=== PATIENT | female | born 1970 | race Caucasian/White ===

== ENCOUNTER 2017-03-11 13:02 | Emergency (ER) | payer BC ==
[2017-03-11] MEDS ORDERED: ONDANSETRON 4 MG TAB.RAPDIS PO ONE (13:13)
[2017-03-11] MEDS ORDERED: LIDOCAINE 1% INJ-PF (10 MG/ML) 30 ML SDV INJ ONE (13:13)
[2017-03-11] MEDS ORDERED: OXYCODONE-ACETAMINOPHEN 5-325 MG TABLET PO ONE (13:13)
--- NOTE | 2017-03-11 13:13 | ER Document Report ---
ED Medical Screen (RME) - General Chief Complaint: Laceration Stated Complaint: LACERATION TO LEFT HAND/FINGERS Mode of Arrival: Wheelchair Information source: Patient Notes: 47-year-old female presents with multiple lacerations of left hand just prior to arrival I have greeted and performed a rapid initial assessment of this patient. A comprehensive ED assessment and evaluation of the patient, analysis of test results and completion of the medical decision making process will be conducted by additional ED providers. PHYSICAL EXAMINATION: GENERAL: Well-appearing, well-nourished and in no acute distress. HEAD: Atraumatic, normocephalic. EYES: Pupils equal round extraocular movements intact, conjunctiva are normal. ENT: Nares patent NECK: Normal range of motion LUNGS: No respiratory distress Musculoskeletal: Normal range of motion NEUROLOGICAL: Normal speech, normal gait. PSYCH: Normal mood, normal affect. SKIN: Multiple lacerations of the palmar surface of left hand TRAVEL OUTSIDE OF THE [place] IN LAST 30 DAYS: No - Related Data Allergies/Adverse Reactions: tramadol Allergy (Verified 09/12/16 11:14) Past Medical History Renal/ Medical History: Denies: Hx Peritoneal Dialysis Physical Exam - Vital signs Vitals: Temp Pulse Resp BP Pulse Ox 98.8 F 76 18 100/70 97 03/11/17 13:05 03/11/17 13:05 03/11/17 13:05 03/11/17 13:05 03/11/17 13:05 Course - Vital Signs Vital signs: Temp Pulse Resp BP Pulse Ox 98.8 F 76 18 100/70 97 03/11/17 13:05 03/11/17 13:05 03/11/17 13:05 03/11/17 13:05 03/11/17 13:05
[2017-03-11] MEDS ORDERED: PIPERACILLIN/TAZOBACTAM 3.375 GM VIAL IV ONE (14:06)
[2017-03-11] MEDS ORDERED: DIPH/PERTUSS(ACELL)/TETANUS VAC/PF 0.5 ML SYR (>=10YO) IM ONE (14:06)
[2017-03-11] MEDS ORDERED: MORPHINE SULFATE 10 MG/ML INJ IV ONE ×2 (14:19→16:13)
--- NOTE | 2017-03-11 17:10 | ER Document Report ---
ED Wound - General Chief Complaint: Laceration Stated Complaint: LACERATION TO LEFT HAND/FINGERS Time seen by provider: 14:00 Mode of Arrival: Wheelchair Information source: Patient Notes: This is a 47-year-old female presents to the emergency room after sustaining an injury to the left hand by a power edger. TRAVEL OUTSIDE OF THE [place] IN LAST 30 DAYS: No - HPI Patient complains to provider of: Laceration Occurred: Just prior to arrival Onset/Duration: Sudden Quality of pain: Sharp Severity: Moderate Pain Level: 4 Context: Injury Skin Temperature: Warm Skin Color: Normal Capillary refill: < 3 seconds Sensations intact: Yes Distal pulses present: Yes Associated Symptoms: None - Related Data Allergies/Adverse Reactions: tramadol Allergy (Verified 09/12/16 11:14) Past Medical History - General Information source: Patient - Social History Smoking Status: Never Smoker Cigarette use (# per day): No Chew tobacco use (# tins/day): No Frequency of alcohol use: None Drug Abuse: None Lives with: Family Family History: Reviewed & Not Pertinent Patient has suicidal ideation: No Patient has homicidal ideation: No - Medical History Medical History: Negative Renal/ Medical History: Denies: Hx Peritoneal Dialysis Surgical Hx: Negative Review of Systems - Review of Systems Constitutional: No symptoms reported EENT: No symptoms reported Cardiovascular: No symptoms reported Respiratory: No symptoms reported Gastrointestinal: No symptoms reported Genitourinary: No symptoms reported Female Genitourinary: No symptoms reported Musculoskeletal: See HPI Skin: See HPI Hematologic/Lymphatic: No symptoms reported Neurological/Psychological: No symptoms reported Physical Exam - Vital signs Vitals: Temp Pulse Resp BP Pulse Ox 98.8 F 76 18 100/70 97 03/11/17 13:05 03/11/17 13:05 03/11/17 13:05 03/11/17 13:05 03/11/17 13:05 Notes: Left hand: Good radial and ulnar pulse. Good cap refill. Good sensation. 2 point discrimination to each finger is good. Patient does have mild sensory loss to the radial aspect of the distal second digit beyond the laceration. She does have sensory, but it does not feel the same. Left index finger: Patient has a 3 cm laceration at the base of the finger just distal to the MCP joint. The wound was explored and placed into range of motion exercises and I do not see any injuries to the flexor tendon. FDP and FDS appear to be intact. Left middle finger: There is a 2 cm laceration to the radial aspect over the intermediate phalanx. Inspection of the wound with passive flexion and extension does not reveal any flexor tendon injuries. There is some sensory loss distally as mentioned above. Left fourth finger: There is 2 lacerations on the volar aspect of the intermediate phalanx. The first one is 1 cm, the second one is 2 cm. Flexor tendons are intact. Distal sensory is good. Left fifth finger: There is a 2 cm laceration over the distal phalanx. FDS and FDP are intact. Distal sensation is good. Course - Vital Signs Vital signs: Temp Pulse Resp BP Pulse Ox 98.5 F 71 16 100/74 100 03/11/17 17:38 03/11/17 17:38 03/11/17 17:38 03/11/17 17:38 03/11/17 17:38 Procedures - Laceration/Wound Repair Left 2nd digit Time completed: 16:00 Wound length (cm): 3 Wound's Depth, Shape: Into muscle, Irregular Anesthetic type: Other - Median nerve block performed Volume Anesthetic (mLs): 5 Wound explored: Clean Irrigated w/ Saline (mLs): 1,000 Wound Debrided: Minimal Wound Repaired With: Sutures Suture Size/Type: 5:0, Nylon Number of Sutures: 4 Post-procedure wound care: Sterile dressing applied Post-procedure NV exam normal: Yes Complications: No Notes: 03/12/17 01:12 Note: A median nerve block was performed and a superficial ulnar block performed under sterile conditions. The whole left hand was scrubbed with a surgical scrub brush with iodine 2. The lacerations were then copiously irrigated with sterile saline. I did need to supplement the nerve block with some digital blocks. The lacerations were inspected for tendon injury with passive range of motion of the digits. None were identified. The wounds were then approximated with nylon sutures. After this, the lacerations were covered with Xeroform and a bulky dressing. Left 3rd digit Time completed: 16:00 Wound length (cm): 2 Wound's Depth, Shape: Irregular Laceration pre-procedure: Chloraprep applied, Shur-Clens applied Anesthetic type: 1% Lidocaine Volume Anesthetic (mLs): 3 Wound explored: Clean Irrigated w/ Saline (mLs): 1,000 Wound Debrided: Minimal Wound Repaired With: Sutures Suture Size/Type: 5:0, Nylon Number of Sutures: 3 Layer Closure?: No Post-procedure NV exam normal: No - patient does have some mild sensory disturbance distally Complications: No Left 4th digit Time completed: 16:00 Wound length (cm): 5 - there is 2 lacerations to the fourth digit: one 3 cm, the other 2 cm Wound's Depth, Shape: Irregular Laceration pre-procedure: Chloraprep applied, Sterile drapes applied Anesthetic type: 1% Lidocaine Volume Anesthetic (mLs): 4 - digital block performed Wound explored: Clean Irrigated w/ Saline (mLs): 1,000 Wound Debrided: Minimal Wound Repaired With: Sutures Suture Size/Type: 5:0, Nylon Number of Sutures: 7 Post-procedure wound care: Sterile dressing applied Post-procedure NV exam normal: Yes Complications: No Left 5th digit Time completed: 16:00 Wound length (cm): 2 Wound's Depth, Shape: Irregular Laceration pre-procedure: Chloraprep applied Anesthetic type: 1% Lidocaine Volume Anesthetic (mLs): 3 - digital block Irrigated w/ Saline (mLs): 1,000 Wound Debrided: Minimal Wound Repaired With: Sutures Suture Size/Type: 5:0, Nylon Number of Sutures: 4 Layer Closure?: No Post-procedure wound care: Sterile dressing applied Post-procedure NV exam normal: Yes Complications: No Discharge - Discharge Clinical Impression: laceration to the left fingers: 234-5 Condition: Stable Disposition: HOME, SELF-CARE Instructions: Prophylactic Antibiotic ([facility]), Oral Narcotic Medication ([facility]), Tetanus Immunization Given ([facility]), Laceration Care ([facility]) Additional Instructions: Recommendations: You can keep the wound bandaged until Monday during the wound check. First call either hand surgeon to see if you can get into the office: Tell them that you were seen in the ER over the weekend after sustaining an hand injury from a power edge and the ER doctor wanted you evaluated. If you are unable to get into the office on Monday, return to the ER for a wound check. (bring the wound check paperwork with you). Check Keep the wound dry. His sutures will come out in 10 days. If you are unable to get into the office in 10 days, return to the ER for suture removal. Return to the ER for fever (temperature greater than 100.5), any streaks of redness going up-year-old, increased pain or any concerns he getting worse. Take the antibiotics as prescribed Take the Percocet as needed: You can take ibuprofen as well. Keep the wound elevated The pain medicine you're taking prescribed as a narcotic. There are several important things you should know about this medicine: 1. This medicine contains Tylenol: It is important that you do not take Tylenol (or acetaminophen) while on this medicine. Tylenol is metabolized by the liver and taking too much Tylenol (acetaminophen) can lay to liver damage and even liver failure. 2. Taking narcotics for too long can lead to physical and mental dependence. Take this medicine only if really needed and in the lowest quantity to achieve pain relief. 3. Do not drink alcohol while on this medicine. Alcohol interacts with narcotics and the combination can be dangerous. 4. Do not drive or operate machinery while on this medicine. 5. Narcotics do cause constipation, so drink plenty of fluids and daily stool softeners. Prescriptions: Cephalexin Monohydrate [Keflex 500 mg Capsule] 500 mg PO QID #20 capsule Oxycodone HCl/Acetaminophen [Percocet 5-325 mg Tablet] 1 - 2 tab PO ASDIR PRN # 25 tablet PRN Reason: Forms: Follow up (Sutures/Santa), Follow-Up (Wound) Referrals: ELAINE HASSAN NP [Primary Care Provider] - Follow up as needed ANGY LOWRY MD [ACTIVE STAFF] - Follow up as needed (This is the number of the hand /plastics surgeon.) ISA REIS DO [ACTIVE STAFF] - Follow up as needed (This is the number of the hand/orthopedic surgeon)
[2017-03-11] MEDS ORDERED: HYDROCODONE/ACETAMINOPHEN 5-325 MG 6 TAB/DSPK PO PRN (17:30)
[2017-03-11] MEDS ORDERED: ONDANSETRON ODT 4 MG TAB (6 TAB/DSPK) PO PRN (17:31)
[2017-03-11 17:40] VITALS: BP 100/74
== END 2017-03-11 17:38 | disposition home or self-care (01) ==
LOC: ER 13:02
PROC: 0HQGXZZ Repair Left Hand Skin, External Approach (ICD-10-PCS; principal; 2017-03-11)
DX: S61.211A Laceration without foreign body of left index finger without damage to nail, initial encounter (principal); S61.217A Laceration without foreign body of left little finger without damage to nail, initial encounter; S61.213A Laceration without foreign body of left middle finger without damage to nail, initial encounter; S61.215A Laceration without foreign body of left ring finger without damage to nail, initial encounter; W29.3XXA Contact with powered garden and outdoor hand tools and machinery, initial encounter
CPT/HCPCS: 96376; 99283; 90471; 96375; 96365; 73130; 90715; 12044; S0119; J3490; J2270; J2543

== ENCOUNTER 2018-03-07 22:35 | Emergency (ER) | payer BC ==
--- NOTE | 2018-03-08 00:08 | ER Document Report ---
HPI - HPI Pain Level: 2 Notes: Patient is a 48-year-old female with a history of chronic low back pain with radiculopathy who presents to the ED complaining of right lateral ankle pain just posterior to the lateral malleolus that began about 12 hours ago. Patient states that she has been in physical therapy for her ankle and her feet. Patient states that they were working her ankle pretty hard yesterday, but she did not have any pain when she woke up this morning. Patient states that she began feeling pain and a possible knot in that area. Patient states that she has been limping since then. Patient believes that her ankles a little more red than usual. She denies any other trauma or insect bite. She denies any smoking, IV drug use, hormone replacement, prolonged immobilization, recent surgery/trauma, previous DVT/PE. Patient states that she has otherwise felt well and is eating and drinking without difficulties. She is urinating normally and having normal bowel movements. Patient states that there is one specific spot that she is tender at in that area. No other concerns or complaints. Denies any headache, fever, neck pain, URI, sore throat, chest pain , palpitations, syncope, cough, shortness of breath, wheeze, dyspnea, abdominal pain, nausea/vomiting/diarrhea, urinary retention, dysuria, hematuria, or rash. - ROS Systems Reviewed and Negative: Yes All other systems reviewed and negative - REPRODUCTIVE Reproductive: DENIES: : Past Medical History - Social History Smoking Status: Never Smoker Family History: Reviewed & Not Pertinent Renal/ Medical History: Denies: Hx Peritoneal Dialysis Vertical Provider Document - CONSTITUTIONAL Agree With Documented VS: Yes Notes: PHYSICAL EXAMINATION: GENERAL: Well-appearing, well-nourished and in no acute distress. LUNGS: Breath sounds clear to auscultation bilaterally and equal. No wheezes rales or rhonchi. HEART: Regular rate and rhythm without murmurs, rubs, gallops. Musculoskeletal: Rt ankle: FROM to passive/active. Strength 5+/5. N/v intact distal. No calf tenderness, asymmetry, induration, or erythema. Nely negative. Achilles intact. + mild swelling to the posterior rt lateral malleolus. + tenderness directly at the site of the fibularis tendons, w/o bony tenderness. No significant erythema. No abscess or cellulitis noted. Extremities: No cyanosis, clubbing, or edema b/l. Peripheral pulses 2+. Capillary refill less than 3 seconds. NEUROLOGICAL: Normal speech, normal gait. Normal sensory, motor exams PSYCH: Normal mood, normal affect. SKIN: Warm, Dry, normal turgor, no rashes or lesions noted. - INFECTION CONTROL TRAVEL OUTSIDE OF THE [place] IN LAST 30 DAYS: No Course - Re-evaluation Re-evalutation: 03/08/18 01:20 Patient is an afebrile, well-hydrated and 48-year-old female who presents to the ED with lateral right ankle pain, suspect tendon strain. Vitals are acceptable. PE is otherwise unremarkable for any neurovascular compromise, obvious tendon/ligament rupture, obvious fracture/dislocation, septic joint, DVT. Patient is point tender at the fibularis tendons that run inferiorly to the lateral malleolus. Patient is still able to ambulate. X-ray was unremarkable for any acute pathology. No other labs or imaging warranted at this time based on H&P. Recommend conservative measures for symptoms. Recheck with your PCM in 3-5 days. Consider consult orthopedic/physical therapy. Return to the ED with any worsening/concerning symptoms otherwise as reviewed discharge. Patient is in agreement. - Vital Signs Vital signs: Temp Pulse Resp BP Pulse Ox 98 F 84 18 127/81 H 97 03/07/18 22:42 03/07/18 22:42 03/07/18 22:42 03/07/18 22:42 03/07/18 22:42 Discharge - Discharge Clinical Impression: Right ankle pain Qualifiers: Chronicity: acute Qualified Code(s): M25.571 - Pain in right ankle and joints of right foot Condition: Stable Disposition: HOME, SELF-CARE Instructions: Ice & Elevation ([facility]) Additional Instructions: Rest, Ice, Compression, Elevation Tylenol/ibuprofen as needed Light stretches daily Strength exercises as able Moist heat and massage may help F/u with your PCP in 3-5 days for a recheck Consider consult(s) with Orthopedics/physical therapy for ongoing/worsening symptoms Return to the ED with any worsening symptoms and/or development of fever, headache, chest pain, palpitations, syncope, shortness of breath, trouble breathing, abdominal pain, n/v/d, muscle weakness/paralysis, numbness/tingling, swelling, redness, or other worsening symptoms that are concerning to you. Prescriptions: Naproxen 500 mg PO BID PRN #30 tablet PRN Reason: Forms: Elevated Blood Pressure Referrals: LUCIANO ALCAZAR FNP [Primary Care Provider] - Follow up in 3-5 days [facility] [Provider Group] - Follow up as needed
--- NOTE | 2018-03-08 01:13 | RADIOLOGY REPORT (SQ) ---
EXAM DESCRIPTION: ANKLE RIGHT COMPLETE CLINICAL HISTORY: 48 years, Female, rt lateral ankle pain COMPARISON: None. NUMBER OF VIEWS: 3 Findings: Bones, joints, and soft tissues of ANKLE RIGHT appear intact. IMPRESSION: No acute findings.
[2018-03-08 01:35] VITALS: BP 124/78
== END 2018-03-08 01:43 | disposition home or self-care (01) ==
LOC: ER 22:35
DX: M25.571 Pain in right ankle and joints of right foot (principal); M25.471 Effusion, right ankle
CPT/HCPCS: 99283